=== PATIENT | female | born 1965 | race Caucasian/White ===

== ENCOUNTER 2017-09-21 09:25 | Day surgery (SDC) | payer OTHER ==
[2017-09-21] VITALS (8 sets, daily range): BP systolic 102–128; BP diastolic 57–82
[~2017-09-21] VITALS: Ht 160 cm; Wt 68.0 kg
[~2017-09-21 09:25] MED LIST: LR 1000ml 1,000 ML IV SCH
[2017-09-21] MEDS ORDERED: Midazolam 2mg/2ml Inj ONE (09:26)
--- NOTE | 2017-09-21 09:46 | Short Stay Surgery H&P ---
History of Present Illness History of Present Illness Chief Complaint Abdominal pains and chronic acid reflux HPI Maryam Colmenares is a 52 year old female who was admitted on for GERD/abdominal pains Patient History Allergies: Coded Allergies: No Known Allergies (Unverified , 09/20/17) PAST MEDICAL HISTORY: (1) spinal disc (2) Arthritis Review of Systems Cardiovascular: Reports: no symptoms Respiratory: Reports: no symptoms Skeletal: Reports: spinal disc disease Gastrointestinal: Reports: gastro esophageal reflux disease Neurologic: Reports: no symptoms Endocrine: Reports: no symptoms Physical Exam Skin: normal HENT: normal Heart: normal Lungs: normal Abdomen: abnormal Extremities: normal Genitourinary: normal Plan Plan of Care Upper GI endoscopy and biopsy. Preop Interventions None. Attestation Are the patient's medical conditions optimized for surgery? Attestation Response: yes Radha Mcnair MD Sep 21, 2017 09:46
--- NOTE | 2017-09-21 09:47 | Pre-Procedure Note/Attestation ---
Pre-Procedure Note/Attestation Complete Prior to Procedure Planned Procedure: left Procedure Narrative: Endoscopic exam of the stomach . Indications for Procedure Pre-Operative Diagnosis: R/O gastritis/esophagits Attestation I attest that I discussed the nature of the procedure; its benefits; risks and complications; and alternatives (and the risks and benefits of such alternatives ), prior to the procedure, with the patient (or the patient's legal patient representative). I attest that, if there was a reasonable possibility of needing a blood transfusion, the patient (or the patient's legal patient representative) was given the [facility] standardized written summary, pursuant to the Anil Yon Blood Safety Act ([place] Health and Safety Code # 1645, as amended). I attest that I re-evaluated the patient just prior to the surgery and that there has been no change in the patient's H&P, except as documented below: Radha Mcnair MD Sep 21, 2017 09:47
[2017-09-21] MEDS ORDERED: LR 1000ml ONE (10:00)
[2017-09-21] MEDS ORDERED: Propofol 200mg/20ml IV ONE (10:00)
[2017-09-21] MEDS ORDERED: Lidocaine 1% MPF 10mg/ml 5ml ONE (10:00)
[2017-09-21] MEDS ORDERED: magnesium PO (10:16)
[2017-09-21] MEDS ORDERED: LR 1000ml 1,000 ML IVLG SCH (10:23)
--- NOTE | 2017-09-21 10:29 | Endoscopy Procedure Note ---
Endoscopy Procedure Note General Indication for Procedure: Chronic GERD and dysphagia and gstritis Procedures Performed: EGD - Antral Gastritis, biopsied otherwise normal upper GI endoscopy. Specimen: yes Pt Tolerated Procedure Well: Yes Estimated Blood Loss: none Anesthesia Anesthesiologist: Dr. Hector Anesthesia: moderate sedation Medications Medication Given: see anesthesia record Inserted Devices Implant(s) used?: No Quality Quality of Bowel Preparation: Excellent GI Core Measures 50 yrs or older w/o bx or poly: Not Applicable 10yrs. F/U not recommended: Not Applicable If not recommended, why?: Med reason:<3 yrs.: System Reason:<3 yrs.: Radha Mcnair MD Sep 21, 2017 10:29
[2017-09-21] MEDS ORDERED: DiphenhydrAMINE 50mg/ml Inj IVP PRN (10:30)
[2017-09-21] MEDS ORDERED: HYDROcodone/Acetamin 7.5/325 tab ORAL PRN (10:30)
[2017-09-21] MEDS ORDERED: Ketorolac 30mg Inj IV PRN ×2 (10:30)
[2017-09-21] MEDS ORDERED: Midazolam 2mg/2ml Inj IVP PRN (10:30)
[2017-09-21] MEDS ORDERED: fentaNYL 100 mcg/2 mL IV PRN (10:30)
[2017-09-21] MEDS ORDERED: oxyCODONE HCL/Acetaminophen 5/325mg ORAL PRN (10:30)
[2017-09-21] MEDS ORDERED: LORazepam Inj 2mg/ml 1ml IV PRN (10:30)
[2017-09-21] MEDS ORDERED: Hydromorphone 0.5mg/0.5ml inj IVP PRN (10:30)
[2017-09-21] MEDS ORDERED: Labetalol 5mg/ml 20ml vial IV PRN (10:30)
[2017-09-21] MEDS ORDERED: Atropine Inj 1mg/10ml Syr IV PRN (10:30)
[2017-09-21] MEDS ORDERED: Norco 5mg/325mg tab ORAL PRN (10:30)
[2017-09-21] MEDS ORDERED: Metoclopramide 10mg/2ml Inj IVP PRN (10:30)
--- NOTE | 2017-09-21 10:30 | Anethesia Preoperative Eval ---
Anesthesia Pre-op PMH/ROS General Date of Evaluation: Sep 21, 2017 Time of Evaluation: 10:09 Anesthesiologist: Tom ASA Score: ASA 2 Mallampati Score Class I : Soft palate, uvula, fauces, pillars visible Class II: Soft palate, uvula, fauces visible Class III: Soft palate, base of uvula visible Class IV: Only hard plate visible Mallampati Classification: Class II Surgeon: Xu Diagnosis: Abd Pain Surgical Procedure: EGD Anesthesia History: none Family History: no anesthesia problems Allergies: Coded Allergies: No Known Allergies (Unverified , 09/20/17) Medications: see eMAR Past Medical History Cardiovascular: Reports: HTN Gastrointestinal/Genitourinary: Reports: GERD Neurologic/Psychiatric: Reports: depression/anxiety PSxH Narrative: Spleenectomy, Cervical Spine Sx Anesthesia Pre-op Phys. Exam Physician Exam Last Vital Signs Date Time Temp Pulse Resp B/P (MAP) Pulse Ox O2 Delivery O2 Flow Rate FiO2 09/21/17 10:08 Room Air 09/21/17 10:04 97.0 77 18 113/75 (88) 96 97.0 Constitutional: NAD Neurologic: CN 2-12 intact Cardiovascular: RRR Respiratory: CTA Gastrointestinal: S/NT/ND Airway Exam Mallampati Score: Class II MO: limited ROM: limited Teeth: missing, intact Anesthesia Pre-op A/P Labs Urine Test Test 09/21/17 09:40 Urine HCG, Qualitative Negative (NEGATIVE) Risk Assessment & Plan Assessment: ASA 2 Plan: TIVA Status Change Before Surgery: No Denver Santos MD Sep 21, 2017 10:30
--- NOTE | 2017-09-21 10:30 | Discharge Instructions ---
Discharge Instructions Discharge Instructions Follow up with: Visit doctor after two weeks For Congestive Heart Failure Reminder Report to your physician any weight gain of 5 pounds or more in one week. Radha Mcnair MD Sep 21, 2017 10:30
--- NOTE | 2017-09-21 10:31 | Immediate Post-Op Evaluation ---
Immediate Post-Op Evalulation Immediate Post-Op Evalulation Procedure: EGD Date of Evaluation: Sep 21, 2017 Time of Evaluation: 10:58 IV Fluids: 400 LR Blood Products: 0 Estimated Blood Loss: 1 Urinary Output: 0 Blood Pressure Systolic: 128 Blood Pressure Diastolic: 82 Pulse Rate: 76 Respiratory Rate: 16 O2 Sat by Pulse Oximetry: 98 Temperature (Fahrenheit): 97.3 Pain Score (1-10): 1 Nausea: No Vomiting: No Complications 0 Patient Status: awake, reacts, patent, none Hydration Status: adequate Denver Santos MD Sep 21, 2017 10:31
--- NOTE | 2017-09-21 10:32 | 48 Hour Post Anesthesia Eval ---
Post Anesthesia Evaluation Procedure: EGD Date of Evaluation: Sep 21, 2017 Time of Evaluation: 12:43 Blood Pressure Systolic: 128 0: 83 Pulse Rate: 75 Respiratory Rate: 16 Temperature (Fahrenheit): 97.3 O2 Sat by Pulse Oximetry: 96 Airway: patent Nausea: No Vomiting: No Pain Intensity: 0 Hydration Status: adequate Cardiopulmonary Status: Stable Mental Status/LOC: patient returned to baseline Follow-up Care/Observations: 0 Post-Anesthesia Complications: 0 Follow-up care needed: ready to discharge Denver Santos MD Sep 21, 2017 10:32
--- NOTE | 2017-09-24 09:45 | Procedure Note ---
DATE OF PROCEDURE: 09/21/2017 PROCEDURE: Esophagogastroduodenoscopy with biopsy. PREOPERATIVE DIAGNOSES: History of gastritis and chronic gastroesophageal acid reflux and dysphagia. POSTOPERATIVE DIAGNOSIS: Gastritis of the antrum, which was biopsied. Otherwise, completely normal upper GI endoscopy. MEDICATION USED: Per Dr. Santos anesthesiologist. INSTRUMENT: GIF Olympus upper GI video endoscope. DESCRIPTION OF PROCEDURE: The patient after arriving endoscopy unit, was told about risks and benefits of the procedure which she accepted and signed informed consent. She was then put in the left lateral decubitus position. After adequate IV sedation, the scope was gently passed through the cricopharyngeal area was lodged into the upper esophagus and gradually advanced towards gastroesophageal junction. The entire length of the esophagus looked normal without any pathology. GE junction also was similarly normal without any Amin's or hiatal hernia. At this time, the scope was advanced into the stomach. Gastric cavity was distended with insufflation of air. The areas of the fundus and the body of the stomach looked completely normal with normal gastric lining, however, upon reaching towards the antrum and prepyloric area, there was linear inflammatory process with minimal submucosal hemorrhages consistent with gastritis. A couple of biopsies from this area was obtained as well as it was noted that there was some edema of the pyloric channel at 3 o'clock. There was no ulcers, however. Finally, the scope was advanced into the duodenal bulb. First and second portion of duodenum were found to be completely normal. At this time, the scope was pulled out into the stomach. A retroflexion maneuver was applied. The area of the gastroesophageal junction was examined in a closer fashion which revealed no abnormalities. Finally, the scope was pulled out. The procedure was terminated. The patient tolerated the procedure well and left the endoscopy room in a good condition. Said Keren Mcnair DR: Amita JOB#: [id number] CC:
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
== END 2017-09-21 11:50 | disposition home or self-care (01) ==
LOC: GAS 09:25
DX: K29.50 Unspecified chronic gastritis without bleeding (principal); K21.9 Gastro-esophageal reflux disease without esophagitis; M19.90 Unspecified osteoarthritis, unspecified site; I10 Essential (primary) hypertension; F32.9 Major depressive disorder, single episode, unspecified; F41.9 Anxiety disorder, unspecified; Z90.81 Acquired absence of spleen
CPT/HCPCS: 43239; 81025; J2250; J2704; J7120; 94003; 94150